=== PATIENT | female | born 1960 | race Caucasian/White ===

== ENCOUNTER 2017-01-18 01:12 | Emergency (ER) | payer OTHER ==
[2017-01-18 01:22] VITALS: BP 136/84
[2017-01-18] MEDS ORDERED: NORMAL SALINE 1,000 ML IV ONE (01:27)
[2017-01-18] MEDS ORDERED: ONDANSETRON HCL/PF 2 MG/ML VIAL IV ONE (01:27)
[2017-01-18 01:39] LABS: Urine Bilirubin Negative (NEGATIVE); Urine Blood 250 /ul (NEGATIVE); Urine Ketone Negative (NEGATIVE); Urine Protein 100 mg/dL (NEGATIVE); Urine Specific Gravity >=1.030 SP.GR. (1.005-1.010); Urine Urobilinogen Normal (NORMAL); Urine pH 5.5 pH (5.0-7.0)
--- NOTE | 2017-01-18 01:40 | ERNOTE ---
Abdominal HPI - Narrative Date of Service: 01/18/17 - General Chief Complaint: Abdominal Pain Time Seen by Provider: 01/18/17 01:25 Source: patient - Immun/Allergies/Home Medications Immunizatons: IMMUNIZATION HX Immunizations Up to Date Yes History of Influenza Vaccine Yes Hx Pneumococcal Vaccination No Allergies/Adverse Reactions: Allergies No Known Allergies Allergy (Unverified 01/18/17 01:22) Home Medications: HOME MEDICATIONS Levofloxacin [Levaquin] 500 mg PO DAILY #14 tablet 01/18/17 [Last Taken Unknown] - History of Present Illness Narrative: This is a 56-year-old female who comes to the emergency department complaining of right sided abdominal pain and flank pain. She says that about a week ago she started having some mild discomfort in the suprapubic area. She has had a bit of frequency. No urgency. No hematuria. No fever. Over the last couple of days pain has moved from just right of the midline to the right flank. She denies some discomfort in the right back as well. She has had one episode of vomiting. No significant nausea. Bowels are moving fine. Appetite has been normal. No vaginal discharge. Nothing makes the pain worse or makes it better. She does describe excessive amount of pressure through her bladder. Review of Systems - Review of Systems Constitutional: Present: no symptoms reported. Absent: fever, fatigue, malaise EYE: Present: no symptoms reported ENT: Present: no symptoms reported Respiratory: Present: no symptoms reported Cardiology: Present: no symptoms reported Gastrointestinal/Abdominal: Present: no symptoms reported Genitourinary: Present: no symptoms reported Musculoskeletal: Present: no symptoms reported Skin: Present: no symptoms reported Neurological: Present: no symptoms reported Endocrine: Present: no symptoms reported Hematologic/Lymphatic: Present: no symptoms reported Psych: Present: no symptoms reported All Other Systems: All systems neg except as marked - Patient's Past Medical History Patient History - Medical: No pertinent hx Patient History - Cardiac/Respiratory: No pertinent hx Patient History - Cancer: No Hx of Cancer Patient History - Surgical Procedures: No surgical history Patient History - Other: None LMP (females 10-50): Menopausal - Social History Living Situations: spouse Abuse History: No History of abuse Psych History: No pertinent hx Have you smoked in the past 12 months: No Do you dip or chew tobacco: No Alcohol Use: occasionally Drug Use: none - Immunizations Immunizations Up to Date: Yes Hx Pneumococcal Vaccination: No History of Influenza Vaccine: Yes Physical Exam - Physical Exam General Appearance: Present: wd/wn, alert, no apparent distress Head Exam: Present: normal inspection, no evidence of injury Eye Exam: Normal inspection: bilateral, PERRL: bilateral, EOMI: bilateral Ears, Nose, Throat: Present: normal ENT inspection, normal pharynx Neck: Present: normal inspection, nontender Respiratory: Present: no respiratory distress, normal breath sounds, lungs clear Cardiovascular/Chest: Present: regular rate, rhythm, no murmur, normal peripheral pulses Gastrointestinal/Abdominal: Present: normal bowel sounds, other Back Exam: Present: normal inspection, normal range of motion, no CVA tenderness , no vertebral tenderness Extremity Exam: Present: normal inspection, non-tender, normal range of motion, no edema Neurological Exam: Present: alert, oriented, normal mood/affect, no motor/ sensory deficits Skin Exam: Present: normal color, warm/dry Lymphatic Exam: Present: no adenopathy ED Progress - Results and Orders Patient's Lab Results:: I have reviewed the patient's lab results. - Vital Signs Patient's Vital Signs:: I have reviewed the patient's vital signs. Vital Signs: Vital Signs 01/18/17 01:16 Temperature 37.5 C Pulse Rate 75 Respiratory 14 Rate Blood Pressure 136/84 O2 Sat by Pulse 97 Oximetry - Progress/Reassessment Chief Complaint: Abdominal Pain Departure - Departure Clinical Impression: Urinary tract infection Disposition: Home self-care Condition: Stable Instructions: Urinary Tract Infection, Adult, [id number] Additional Instructions: As we discussed it is important that you take all 7 days of the prescribed antibiotics even though he'll likely feel better after only one or 2 days. He should call your family doctor and set up a follow-up appointment. Worrisome symptoms which should trigger a return to the emergency department include a fever more than 101, vomiting to the point where he can't keep down her antibiotics, a large amount of blood in your urine, bowel problems, or anything else which is new or concerning. Prescriptions: Levofloxacin [Levaquin] 500 mg PO DAILY #14 tablet
[2017-01-18 01:41] LABS: Hematocrit 38.1 % (37.0-47.0); Hemoglobin 13.7 gm/dL (12.5-16.0); Mean Cell Volume 92.3 fl (78-100); Mean Corpuscular Hemoglobin 33.2 pg (27-31); Mean Platelet Volume 8.4 fl (6.0-9.5); Neutrophil # 7.1 K/mm3 (1.3-6.0); Neutrophil % 73.9 % (42-75.0); Platelet Count 185 K/mm3 (150-450); Red Blood Count 4.13 M/mm3 (4.2-5.4); Red Cell Distribution Width 11.5 % (11.5-14.0); White Blood Count 9.6 K/mm3 (4.0-10.5)
[2017-01-18 01:43] LABS: Urine Amorphous Sediment Moderate - 2+ (NONE-FEW); Urine Appearance Cloudy; Urine Bacteria 3+; Urine Color Brown; Urine Nitrite Positive (NEGATIVE); Urine WBC >50 /hpf (0-5)
[2017-01-18] MEDS ORDERED: LEVOFLOXACIN 500 MG TABLET PO ONE (01:50)
[2017-01-18] MEDS ORDERED: ONDANSETRON HCL 8 MG TABLET PO ONE (01:50)
[2017-01-18] MEDS ORDERED: ONDANSETRON HCL 8 MG TABLET ONE (01:55)
[2017-01-18 01:56] LABS: Albumin * 3.8 gm/dl (3.4-5.0); Anion Gap 12.5 mmol/L (6.8-13.8); BUN/Creatinine Ratio 9.9 (9.0-21.6); Bilirubin, Total 0.5 mg/dL (0.0-1.1); Ca. Corrected For Albumin 8.8 mg/dL (8.4-10.2); Carbon Dioxide 25.5 mmol/L (24-32.6)
[2017-01-18] MEDS ORDERED: LEVOFLOXACIN 500 MG TABLET ONE (01:56)
== END 2017-01-18 02:25 | disposition home or self-care (01) ==
LOC: ER 01:12
DX: N39.0 Urinary tract infection, site not specified (principal); Z53.29 Procedure and treatment not carried out because of patient's decision for other reasons